=== PATIENT | female | born 1990 ===

== ENCOUNTER 2019-05-19 14:04 | Inpatient (IN) | payer OTHER ==
[~2019-05-19] VITALS: Ht 160.1 cm; Wt 72.3 kg
[2019-06-01] VITALS (19 sets, daily range): BP systolic 107–138; BP diastolic 49–84; PULSE 62–85; TEMP 98–98.8
--- NOTE | 2019-06-01 10:00 | NUR ---
PATIENT HERE FOR PRIMARY SECTION. PATIENT CHANGED INTO GOWN. PATIENT ON EFM. CONSENTS SIGNED, ADMISSION COMPLETE, QUESTIONS ASNWERED. PATIENT DENIES LEAKING OF FLUID AND BLEEDING. CONTRACTIONS NOTED ON MONITOR 6 MINUTES APART
[2019-06-01 10:33] LABS: BASO # 0.1 (0.0-0.2); BASO % 0.4 % (0.0-2.0); EOS # 0.1 (0.0-0.7); EOS % 0.9 % (0-4.0); GRAN # 8.8 (1.4-6.5); GRAN % 68.3 % (42.2-75.2); HEMATOCRIT 37.2 % (37.0-47.0); HEMOGLOBIN 12.7 g/dl (12.5-16.0); LYMPH # 2.7 (1.2-3.4); MEAN CELL VOLUME 97 fl (80.0-100.0); MEAN CORPUSCULAR HEMOGLOBIN 33 pg (27.0-31.0); MEAN CORPUSCULAR HGB CONC 34 g/dl (33.0-37.0); MEAN PLATELET VOLUME 10.4 fl (7.4-10.4); MONO # 1.1 (0.1-0.6); MONO % 8.5 % (1.7-9.3); PLATELET COUNT 201 K/mm3 (130-400); RED BLOOD COUNT 3.85 M/mm3 (4.10-5.30); REDCELL DISTRIBUTION WIDTH-CV 12.1 % (11.5-14.5)
[2019-06-01] MEDS ORDERED: PRENATAL (10:35)
--- NOTE | 2019-06-01 15:52 | NUR ---
1530-- PATIENT STATES SHE IS VERY NAUSEATED. VOMITS 100CC. STATES FEELS WEAK. BP 124/60 HR 76 TEMP 98.8 R 16. FUNDUS FIRM BLEEDING WNL. DRESSING 80% SATURATED. 1545-- DRESSING REMOVED AT THIS TIME. INCISION SITE CLEANSED AND STERI STRIPS APPLIED TO RIGHT SIDE OF INSCION. INCISION REDRESSED PER STERILE TECHNIQUE. ABD BINDER APPLIED. CHAS GARCIA SPOTTER UPDATED ON PATIENT NAUSEATED AND VOMITING. PHENERGAN 12.5 IV GIVEN PER ORDER AT THIS TIME. 1550-- DR ZAMUDIO CALLED AND UPDATED AND NO FURTHER ORDERS NOTED. LEFT TO TAKE CARE OF OTHER KIDS AND BABY TO NURSERY WHILE MOM RESTS.
[2019-06-02 04:00] VITALS: BP 132/66; PULSE 74; TEMP 98.5
[2019-06-02 07:01] LABS: MEAN CELL VOLUME 98 fl (80.0-100.0); MEAN CORPUSCULAR HGB CONC 34 g/dl (33.0-37.0); PLATELET COUNT 185 K/mm3 (130-400); RED BLOOD COUNT 2.72 M/mm3 (4.10-5.30); REDCELL DISTRIBUTION WIDTH-CV 12.5 % (11.5-14.5)
[2019-06-02 07:07] LABS: HEMATOCRIT 26.7 % (37.0-47.0); HEMOGLOBIN 9.1 g/dl (12.5-16.0); MEAN CORPUSCULAR HEMOGLOBIN 33 pg (27.0-31.0)
[2019-06-02 08:23] VITALS: BP 125/79; PULSE 90; TEMP 97.8
--- NOTE | 2019-06-02 11:05 | NUR ---
Initial visit attempt; Family resting, [employer] left card of congratulations for the of their daughter and information regarding the availability of spiritual care at [place].
[2019-06-02 16:25] VITALS: BP 129/77; PULSE 82; TEMP 98.8
[2019-06-02 20:00] VITALS: BP 119/66; PULSE 87; TEMP 98.2
[2019-06-03 03:00] VITALS: BP 130/76; PULSE 79; TEMP 98.4
[2019-06-03] MEDS ORDERED: FERROUS SU325 MG/TAB PO (06:49)
[2019-06-03] MEDS ORDERED: IBU800 M1 PO (06:49)
[2019-06-03] MEDS ORDERED: PERCOCET 325 MG1 TA2 PO (06:50)
[2019-06-03 08:28] VITALS: BP 127/78; PULSE 97; TEMP 98
--- NOTE | 2019-06-03 10:00 | NUR ---
Discharge instructions given, pt verbalizes understanding. Pt only has a 6 week appointment scheduled, instructed pt to call the [facility] wednesday to schedule a 2 week follow up as well. Bands matched and hugs tag removed.
--- NOTE | 2019-06-03 11:07 | NUR ---
Patient had been discharged.
== END 2019-06-03 10:35 | disposition home or self-care (01) | DRG 788 ==
LOC: OB 06-01 09:54 → LDR 06-01 11:44 → OB 06-02 16:15 → LDR 06-05 14:03
PROVIDERS: ADMIT Student in an Organized Health Care Education/Training Program
PROC: 10D00Z1 Extraction of Products of Conception, Low, Open Approach (ICD-10-PCS; principal; 2019-06-01)
DX: O99.02 Anemia complicating childbirth (principal); Z3A.39 39 weeks gestation of pregnancy; Z37.0 Single live birth; Z23 Encounter for immunization
CPT/HCPCS: J0690; J1885; J2210; J2270; J2370; J2405; J2550; J2590; J7120